=== PATIENT | male | born 1980 | race Two or more races ===

== ENCOUNTER 2016-12-03 21:27 | Emergency (ER) | payer OTHER ==
[~2016-12-03] VITALS: Ht 177.8 cm; Wt 79.4 kg
[2016-12-03] MEDS ORDERED: DIAZEPAM 10 MG TABLET ONE (21:47)
[2016-12-03] MEDS ORDERED: IBUPROFEN 400 MG TABLET ONE (21:47)
[2016-12-03] MEDS ORDERED: IBUPROFEN 400 MG TABLET PO ONE (22:00)
[2016-12-03] MEDS ORDERED: DIAZEPAM 10 MG TABLET PO ONE (22:00)
[2016-12-03 22:53] VITALS: BP 116/86
== END 2016-12-03 22:54 | disposition home or self-care (01) ==
LOC: ER 21:31
DX: S39.92XA Unspecified injury of lower back, initial encounter (principal); X58.XXXA Exposure to other specified factors, initial encounter; Y93.E9 Activity, other interior property and clothing maintenance; Y92.096 Garden or yard of other non-institutional residence as the place of occurrence of the external cause; Y99.8 Other external cause status
CPT/HCPCS: 99283; A4606; Z7610

== ENCOUNTER 2020-09-28 19:02 | Emergency (ER) | payer OTHER ==
[~2020-09-28] VITALS: Ht 175.3 cm; Wt 81.6 kg
--- NOTE | 2020-09-28 19:23 | NUR ---
PT BIBSELF C/O OF RIGHT HAND AND LAST THREE DIGIT PAIN S/P PLAYING FOOTBALL WITH SON. PT [id number] BREATHING EVENLY AND UNLABORED. UPON ASSESSMENT, RT MIDDLE, RING, AND PINKY FINGERS ARE SWOLLEN AND TENDER TO THE TOUCH. PT SKIN WARM, DRY, AND INTACT. PT ATTACHED TO MONITOR AND POX. PT GIVEN BLANKET AND CALL LIGHT WITHIN REACH.
--- NOTE | 2020-09-28 19:44 | NUR ---
xray at bedside
[2020-09-28] MEDS ORDERED: IBUP-1955 PO (20:25)
--- NOTE | 2020-09-28 20:34 | NUR ---
EMT AT BEDSIDE TO APPLY LILIANA TAPE TO 4TH RT FINGER
--- NOTE | 2020-09-28 20:35 | NUR ---
Patient discharged to home in stable condition. Written and verbal after care instructions given. Patient verbalizes understanding of instruction. Pt ambulatory with a steady gait
[2020-09-28 20:37] VITALS: BP 124/86
== END 2020-09-28 20:35 | disposition home or self-care (01) ==
LOC: ER 19:10
DX: S62.622A Displaced fracture of middle phalanx of right middle finger, initial encounter for closed fracture (principal); S62.624A Displaced fracture of middle phalanx of right ring finger, initial encounter for closed fracture; S62.501A Fracture of unspecified phalanx of right thumb, initial encounter for closed fracture; Z79.899 Other long term (current) drug therapy; W21.01XA Struck by football, initial encounter; Y93.61 Activity, american tackle football; Y92.89 Other specified places as the place of occurrence of the external cause; Y99.8 Other external cause status
CPT/HCPCS: 73130-TC